=== PATIENT | male | born 1950 | race Hispanic/Latino ===

== ENCOUNTER → 2022-12-03 | Outpatient (CLI) | payer OTHER ==
[~2022-12-03] MED LIST: GADOTERATE MEGLUMINE 10 MMOL/20 ML VIAL IV ONE
== END | disposition home or self-care (01) ==
LOC: RAH 08:36
PROVIDERS: ATTEND Internal Medicine Gastroenterology
DX: N28.1 Cyst of kidney, acquired (principal); R10.12 Left upper quadrant pain; R93.422 Abnormal radiologic findings on diagnostic imaging of left kidney; Z90.49 Acquired absence of other specified parts of digestive tract
CPT/HCPCS: 74183; A9575